=== PATIENT | female | born 1975 | race Caucasian/White ===

== ENCOUNTER 2018-12-20 15:35 | Emergency (ER) | payer MEDICARE, MEDICAID ==
[~2018-12-20] VITALS: Ht 157.5 cm; Wt 78.0 kg
[2018-12-20] MEDS ORDERED: KETOROLAC 30MG/ML VIAL IV STA (23:50)
[2018-12-20] MEDS ORDERED: SODIUM CHLORIDE 0.9% 1,000 ML IV ONE (23:50)
[2018-12-20] MEDS ORDERED: ONDANSETRON HCL 4MG/2ML INJ IV STA (23:50)
[2018-12-21 00:08] LABS: CLARITY URINE CLEAR (CLEAR); COLOR URINE YELLOW (YELLOW); KETONES URINE NEGATIVE (NEGATIVE); LEUKOCYTE ESTERASE URINE 1+ (NEGATIVE); NITRITE URINE NEGATIVE (NEGATIVE); OCCULT BLOOD URINE NEGATIVE (NEGATIVE); PROTEIN URINE NEGATIVE (NEGATIVE); SPECIFIC GRAVITY URINE 1.002 (1.005-1.030); UROBILINOGEN URINE 0.2 E.U./dL (0.2-1.0)
[2018-12-21 00:31] LABS: BASOPHILS % 0.5 % (0.0-2.0); EOSINOPHILS % 2.3 % (0.0-5.0); HEMATOCRIT. 39.1 % (36.0-48.0); HEMOGLOBIN. 13.5 g/dL (12.0-16.0); LYMPHOCYTES % 26.1 % (20.0-50.0); MEAN CORPUSCULAR HEMOGLOBIN 31.2 pg (28.0-32.0); MEAN CORPUSCULAR VOLUME 90.1 fL (81.0-99.0); MEAN PLATELET VOLUME 7.1 fl (7.4-10.4); MONOCYTES % 6.3 % (2.0-8.0); NEUTROPHILS % 64.8 % (40.0-76.0); PLATELET 305 x1000/uL (130-400); RED BLOOD CELL COUNT 4.34 mill/uL (4.2-5.4); RED CELL DISTRIBUTION WIDTH 13.6 % (11.6-14.6)
[2018-12-21 00:34] LABS: CHLORIDE 86 mEq/L (98-107)
[2018-12-21] MEDS ORDERED: POTASSIUM CHLORIDE 20MEQ TABLET SR PO ONE (02:30)
[2018-12-21 04:29] VITALS: BP 136/82
== END 2018-12-21 04:37 | disposition home or self-care (01) ==
LOC: ER 15:35
DX: R11.2 Nausea with vomiting, unspecified (principal); R10.11 Right upper quadrant pain; N39.0 Urinary tract infection, site not specified; F32.9 Major depressive disorder, single episode, unspecified; Z88.3 Allergy status to other anti-infective agents; Z88.2 Allergy status to sulfonamides
CPT/HCPCS: 36415; 76705; 80053; 81003; 81025; 83690; 85025; 96361; 96374; 96375; 99284; J1885; J2405; J7030

== ENCOUNTER 2020-04-24 18:38 | Inpatient (IN) | payer BC, MEDICAID ==
[~2020-04-24] VITALS: Ht 160 cm; Wt 105.5 kg
[2020-04-24 19:24] LABS: BASOPHILS % 1.1 % (0.0-2.0); EOSINOPHILS % 2.6 % (0.0-5.0); HEMATOCRIT. 40.4 % (36.0-48.0); HEMOGLOBIN. 13.8 g/dL (12.0-16.0); LYMPHOCYTES % 22.3 % (20.0-50.0); MEAN CORPUSCULAR HEMOGLOBIN 29.6 pg (28.0-32.0); MEAN CORPUSCULAR VOLUME 86.4 fL (81.0-99.0); MEAN PLATELET VOLUME 7.2 fl (7.4-10.4); MONOCYTES % 5.9 % (2.0-8.0); NEUTROPHILS % 68.1 % (40.0-76.0); PLATELET 390 x1000/uL (130-400); RED BLOOD CELL COUNT 4.68 mill/uL (4.2-5.4); RED CELL DISTRIBUTION WIDTH 14.2 % (11.6-14.6)
[2020-04-24 19:29] LABS: CHLORIDE 100 mEq/L (98-107)
[2020-04-24] MEDS ORDERED: ONDANSETRON HCL 4MG/2ML INJ IV STA (19:29)
[2020-04-24] MEDS ORDERED: MORPHINE SULFATE 4 MG/ML CPJ (NOT FOR IM USE) IV STA (19:29)
[2020-04-24] MEDS ORDERED: ASPIRIN 81MG TABLET PO ONE (19:30)
[2020-04-24] MEDS ORDERED: NITROGLYCERIN OINT 1GM/INCH UDPKT TD ONE (19:30)
[2020-04-24 19:33] LABS: ETHANOL BLOOD < 10 mg/dL
[2020-04-24 19:42] LABS: *AMPHETAMINES SCREEN URINE NEGATIVE (NEGATIVE)
[2020-04-24 19:43] LABS: *BARBITURATES SCREEN URINE NEGATIVE (NEGATIVE); *BENZODIAZEPINES SCREEN URINE NEGATIVE (NEGATIVE); *COCAINE SCREEN URINE NEGATIVE (NEGATIVE); METHADONE URINE SCREEN NEGATIVE (NEGATIVE); OPIATES URINE SCREEN NEGATIVE (NEGATIVE); PHENCYCLIDINE URINE SCREEN NEGATIVE (NEGATIVE)
[2020-04-24 19:44] LABS: CANNABINOID URINE SCREEN NEGATIVE (NEGATIVE)
[2020-04-24 19:57] LABS: HCG SCREEN NEGATIVE
[2020-04-24 23:50] VITALS: BP 167/109
[2020-04-25] VITALS: BP 167/109
[2020-04-25] MEDS ORDERED: FLUO20CA39 MT (00:24)
[2020-04-25] MEDS ORDERED: TRAZ-251 MT (00:24)
[2020-04-25] MEDS ORDERED: BENZ1TAB7 MT (00:24)
[2020-04-25] MEDS ORDERED: ATOR10TA69 MT (00:24)
[2020-04-25] MEDS ORDERED: BUSP15TA3 MT (00:24)
[2020-04-25] MEDS ORDERED: LOSARTAN POTASSIUM 50 MG TABLET PO SCH (02:30)
[2020-04-25] MEDS: TEMAZEPAM 15MG CAPSULE PO PRN ×2 (02:37→20:51)
[2020-04-25 04:00] VITALS: BP 106/57
[2020-04-25 08:00] VITALS: BP 117/72
[2020-04-25] MEDS ORDERED: ENOXAPARIN 40MG/0.4ML SYR SUBCUT SCH (09:00)
[2020-04-25] MEDS: ASPIRIN 81MG TABLET PO SCH (09:55)
[2020-04-25] MEDS: NIFEDIPINE XL 60MG TAB PO SCH (09:56)
[2020-04-25 12:00] VITALS: BP 107/56
[2020-04-25] MEDS ORDERED: REGADENOSON 0.4 MG/5 ML IV ONE (12:45)
[2020-04-25 16:00] VITALS: BP 109/72
[2020-04-25 20:00] VITALS: BP 100/70
[2020-04-26] VITALS: BP 110/80
[2020-04-26] MEDS ORDERED: ACETAMINOPHEN 325MG TABLET PO PRN (00:30)
[2020-04-26 04:00] VITALS: BP 100/60
[2020-04-26] MEDS: NIFEDIPINE XL 60MG TAB PO SCH (08:54)
[2020-04-26] MEDS: ASPIRIN 81MG TABLET PO SCH (08:54)
[2020-04-26] MEDS ORDERED: LOSARTAN POTASSIUM 50 MG TABLET PO SCH (09:00)
[2020-04-26] MEDS ORDERED: ENOXAPARIN 30MG/0.3ML SYR SUBCUT SCH (09:00)
[2020-04-26 09:04] VITALS: BP 119/68
[2020-04-26 11:59] VITALS: BP 114/70
[2020-04-26] MEDS ORDERED: ASPI-1497 MT (12:31)
[2020-04-26] MEDS ORDERED: ATOR20TA MT (12:31)
[2020-04-26 12:40] VITALS: BP 114/70
[2020-04-26] MEDS ORDERED: ATORVASTATIN CALCIUM 20MG TABLET PO SCH (21:00)
== END 2020-04-26 16:19 | disposition home or self-care (01) | DRG 206 ==
LOC: ER 18:38 → 6WST 21:31 → EDBEDREQTM 21:32 → EDBEDREQ 21:32 → ENRESERV 22:12 → 6WST 04-25 00:02
PROVIDERS: ADMIT Internal Medicine; ATTEND Internal Medicine
DX: M94.0 Chondrocostal junction syndrome [Tietze] (principal); E87.1 Hypo-osmolality and hyponatremia; J98.11 Atelectasis; Z68.41 Body mass index [BMI] 40.0-44.9, adult; I10 Essential (primary) hypertension; E78.5 Hyperlipidemia, unspecified; F32.9 Major depressive disorder, single episode, unspecified; E66.9 Obesity, unspecified; E78.00 Pure hypercholesterolemia, unspecified; Z79.899 Other long term (current) drug therapy; Z88.2 Allergy status to sulfonamides; Z88.8 Allergy status to other drugs, medicaments and biological substances; Z71.3 Dietary counseling and surveillance
CPT/HCPCS: 36415; 71045; 80053; 80061; 80305; 80320; 83880; 84443; 84484; 84703; 85025; 93005; 96374; 99285; J1650; J2270; J2405; G0480